=== PATIENT | male | born 1960 | race Caucasian/White ===

== ENCOUNTER 2021-09-12 08:36 | Day surgery (SDC) | payer BC ==
[~2021-09-12] VITALS: Ht 165.1 cm; Wt 91.4 kg
[2021-09-12 09:43] VITALS: BP 119/79; PULSE 87; TEMP 97.6
[2021-09-12] MEDS ORDERED: HCTZ12.5TAB PO (09:47)
[2021-09-12] MEDS ORDERED: TIROSINT125 MC1 PO (09:53)
[2021-09-12] MEDS ORDERED: NORVASC 10MG10 MG PO (09:54)
[2021-09-12] MEDS ORDERED: PRINIVIL40 MG PO (09:54)
[2021-09-12] MEDS ORDERED: PRILOSEC 20MG20 MG PO (09:56)
[2021-09-12] MEDS ORDERED: ZOCOR 20MG20 MG PO (09:57)
[2021-09-12] MEDS ORDERED: ZOLOFT 100MG100 MG PO (09:57)
[2021-09-12] MEDS ORDERED: ASPIRIN 81M81 MG/TA2 PO (09:58)
[2021-09-12] MEDS ORDERED: CALCIUM 600 PLU1 TAB PO (10:01)
[2021-09-12] MEDS ORDERED: VITAMIN B COMPL1 SGL PO (10:01)
[2021-09-12] MEDS ORDERED: PROFE180 MG PO (10:03)
[2021-09-12] MEDS ORDERED: ONE DAILY ESSE0.5 M1 PO (10:05)
[2021-09-12] MEDS ORDERED: PROBIOTIC ACID1 EAC3 PO (10:06)
[2021-09-12] MEDS ORDERED: FLEXERIL 1010 MG/TAB PO (10:06)
[2021-09-12 10:50] VITALS: BP 95/61; PULSE 83; TEMP 97.3
[2021-09-12 11:05] VITALS: BP 98/71; PULSE 80
[2021-09-12 11:20] VITALS: BP 113/77; PULSE 66
--- NOTE | 2021-09-12 11:40 | NUR ---
1050- Pt returns from endo procedure via cart to [place] [facility]. Pt ambulates from cart to recliner with RN assist. Monitors on and alarms set. Call light within reach. Report received from NADJA Luke. Pt alert and oriented. Pt requests iced tea, refused all food options available. Patient educated on need to assess for nausea, stated "then you need better options, i dont want any of those". Pt denies any pain or nausea. 1105- Pt taking drink well. No complications noted. 1120- Instructed patient to contact brother for ride home. Discharge instructions given to pt. All questions answered to pt satisfaction. Handed to pt education material and discharge information. 1140- Pt transferred out of the hospital via wheelchair, to private vehicle to be driven by brother. Pt asked where cafeteria was. Educated patient on importance of being transfered directly from my care to his brother because of medications he has been given. Pt brought to front lobby to wait for ride. Pt continues to insist on going to cafeteria to wait for brother. Pt gets out of wheel chair and walks toward cafeteria. Followed pt with wheel chair through lobby and part of the nice way. Pt walked independently with a steady gait and tolerated activity well. Asked patient to please walk slowly and carefully.
== END 2021-09-12 11:40 | disposition home or self-care (01) ==
LOC: SDCO 08:36
DX: D12.2 Benign neoplasm of ascending colon (principal); D12.3 Benign neoplasm of transverse colon; K92.1 Melena; R19.7 Diarrhea, unspecified; R19.4 Change in bowel habit; R10.32 Left lower quadrant pain; K21.9 Gastro-esophageal reflux disease without esophagitis; K64.0 First degree hemorrhoids; I12.9 Hypertensive chronic kidney disease with stage 1 through stage 4 chronic kidney disease, or unspecified chronic kidney disease; E11.22 Type 2 diabetes mellitus with diabetic chronic kidney disease; N18.9 Chronic kidney disease, unspecified; E78.5 Hyperlipidemia, unspecified; Z79.899 Other long term (current) drug therapy
CPT/HCPCS: J2704; J7030

== ENCOUNTER 2021-09-26 09:04 | Day surgery (SDC) | payer BC ==
[~2021-09-26] VITALS: Ht 177.8 cm; Wt 91.3 kg
[~2021-09-26 09:04] MED LIST: ASPIRIN 81M81 MG/TA2 PO; CALCIUM 600 PLU1 TAB PO; FLEXERIL 1010 MG/TAB PO; HCTZ12.5TAB PO; NORVASC 10MG10 MG PO; ONE DAILY ESSE0.5 M1 PO; PRILOSEC 20MG20 MG PO; PRINIVIL40 MG PO; PROBIOTIC ACID1 EAC3 PO; PROFE180 MG PO; TIROSINT125 MC1 PO; VITAMIN B COMPL1 SGL PO; ZOCOR 20MG20 MG PO; ZOLOFT 100MG100 MG PO
[2021-09-26] MEDS ORDERED: HUMALOG100 U/ML SQ (09:52)
[2021-09-26 10:13] VITALS: BP 102/79; PULSE 87; TEMP 98.6
[2021-09-26 10:45] VITALS: BP 90/67; PULSE 84; TEMP 98.4
[2021-09-26 11:00] VITALS: BP 110/70; PULSE 78
[2021-09-26 11:15] VITALS: BP 112/68; PULSE 76
[2021-09-26 11:30] VITALS: BP 114/66; PULSE 84
[2021-09-26 11:45] VITALS: BP 127/71; PULSE 80
--- NOTE | 2021-09-26 13:20 | NUR ---
1045 Pt returns from endo procedure via cart and RN assist to [facility]. Pt ambulates from cart to recliner with RN assist. Monitors on and alarms set. Call light within reach. Report received from NADJA Luke. Pt alert and oriented. Pt requests juice and crackers. Pt denies any pain or nausea. 1055 Pt taking food and drink well. No complications noted. 1200 Discharge instructions given to pt. All questions answered to his satisfaction. Handed to pt are a thank you card and discharge information. 1204 Pt transferred out of the hospital via wheelchair and Jatinder assist to wait for pt's brother, who pt said would arrive soon. 1320 Call received from Jatinder that she is still waiting with the pt at the Pt Entrance and waiting for the pt's brother to show up. He reportedly was at [employer] and was on his way. Then, a while later, the pt said that his brother was checking out at [employer]. Jatinder stated that the pt had wanted something to drink, so they went to the cafeteria to get something. They returned to the Pt Entrance to wait. Then, the pt stated that he wasn't feeling well and thinks he needed something to eat. Jatinder proposed that she bring him back upstairs to get something to eat and sit down for a while. Pt refuses, and states he just needs to go to the cafeteria to get some food. Jatinder escorts him to the cafeteria, and continues to wait. Jatinder then calls this RN and explains that the pt's ride still has not shown up, and the pt continues to state that his ride is coming and that he just wants to wait for him. This RN directs Jatinder to return to Endo and the pt can wait for his ride.
== END 2021-09-26 13:20 | disposition home or self-care (01) ==
LOC: SDCO 09:04
DX: K29.50 Unspecified chronic gastritis without bleeding (principal); K92.0 Hematemesis; K22.89 Other specified disease of esophagus; K28.3 Acute gastrojejunal ulcer without hemorrhage or perforation; K44.9 Diaphragmatic hernia without obstruction or gangrene; D50.0 Iron deficiency anemia secondary to blood loss (chronic); Z98.84 Bariatric surgery status; K91.89 Other postprocedural complications and disorders of digestive system
CPT/HCPCS: J2704; J7030